=== PATIENT | female | born 1960 | race Caucasian/White ===

== ENCOUNTER 2016-12-15 16:35 | Inpatient (IN) | payer SELFPAY ==
[2016-12-15 18:34] LABS: BASOPHILS # (AUTO) 0.1 X10^3/uL (0.0-0.1); BASOPHILS % (AUTO) 0.6 % (0.2-1.0); EOSINOPHILS # (AUTO) 0.1 x10^3/uL (0.0-0.2); EOSINOPHILS % (AUTO) 0.3 % (0.9-2.9); HEMOGLOBIN 7.8 g/dL (12.0-16.0); LYMPHOCYTES # (AUTO) 2.1 X10^3/uL (1.3-2.9); LYMPHOCYTES % (AUTO) 9.3 % (21.0-51.0); MEAN CORPUSCULAR HEMOGLOBIN 27.7 pg (27.0-34.0); MEAN CORPUSCULAR HGB CONC 32.5 g/dL (33.0-35.0); MEAN CORPUSCULAR VOLUME 85.4 fL (80.0-100.0); MEAN PLATELET VOLUME 6.8 fL (7.4-11.0); MONOCYTES # (AUTO) 2.3 x10^3/uL (0.3-0.8); NEUTROPHILS # (AUTO) 18.1 x10^3/uL (2.2-4.8); NEUTROPHILS % (AUTO) 79.8 % (42.0-75.0); PLATELET COUNT 724 X10^3/uL (150.0-450.0); RED BLOOD COUNT 2.81 X10^6/uL (3.5-5.4); RED CELL DISTRIBUTION WIDTH 14.7 % (11.6-16.5)
--- NOTE | 2016-12-15 18:38 | DR.H&P ---
H&P - History & Physical for Day of: H&P Date: 12/15/16 - Chief Complaint Chief Complaint: lower extremity edema and swelling, sob - Allergies Allergies/Adverse Reactions: Allergies Allergy/AdvReac Type Severity Reaction Status Date / Time No Known Drug Allergies Allergy Verified 12/15/16 17:58 - History of Present Illness History of Present Illness: 56 wf direct admit from dr cota office with new onset lower extremity edema and sob. pt has +4 edema to [place] without hx of cardiac disease or htn. plan to admit for further evaluation. will obtain labs, cxr and administer iv lasix - Past Medical History Past Medical History: Anxiety, Arthritis - Past Surgical History Surgical History: Unknown - Social History Does patient currently use any type of tobacco product: No Have you used tobacco products in the last 12 months: No Type of Tobacco Use: Cigarettes Does any household member use tobacco: Yes Alcohol Use: None Drug Use: None - Review of Systems Constitutional: Weakness Eyes: No Symptoms Reported ENT: No Symptoms Reported Respiratory: Shortness of Breath, Wheezing Cardiovascular: No Symptoms Reported, Edema Gastrointestinal: No Symptoms Reported Genitourinary: No Symptoms Reported Musculoskeletal: Leg Pain Skin: No Symptoms Reported Neurological: No Symptoms Reported - Physical Exam Vital Signs: Temperature 98 F Pulse Rate [Right Brachial] 88 Respiratory Rate 20 Blood Pressure [Right Arm] 85/50 O2 Sat by Pulse Oximetry 98 Oriented: Normal Eyes: Normal Ear: Normal Nose: Normal Throat: Normal Respiratory: RLL Diminished, LLL Diminished Cardiovascular: Normal, Edema Auscultation: Bowel Sounds: Normal Palpation: Normal Tenderness: Normal Skin: Normal Musculoskeletal: Right, Left, Leg, Back:Thoracic, Back:Lumbar Affect: Anxious Speech Pattern: Clear, Appropriate - Assessment/Plan (1) Edema extremities Status: Acute Plan: admit for iv lasix, cbc cmp bnp. cxr on admission, lower extremity doppler. monitor bp, cardiac enzymes (2) SOB (shortness of breath) Status: Acute
[2016-12-15 18:43] LABS: WHITE BLOOD COUNT 22.7 X10^3/uL (3.6-10.0)
[2016-12-15 18:49] LABS: PLATELET MORPHOLOGY COMMENT NORMAL (NORMAL)
[2016-12-15 18:52] LABS: ANISOCYTOSIS SLIGHT; BLOOD UREA NITROGEN 19 mg/dL (7-18); CALCIUM 8.6 mg/dL (8.5-10.1); CARBON DIOXIDE 25.5 mmol/L (21-32); CHLORIDE 104 mmol/L (98-107); CREATININE 1.32 mg/dL (0.55-1.02); GLUCOSE 97 mg/dL (65-99); HYPOCHROMASIA 1+; POIKILOCYTOSIS SLIGHT; SODIUM 138 mmol/L (136-145); TROPONIN I < 0.02 ng/mL (0-1.5); eGFR BLACK RACES 54 (>60); eGFR NON BLACK RACES 44 (>60)
[2016-12-15 18:54] LABS: B-TYPE NATRIURETIC PEPTIDE 77.9 pg/mL (0-79)
[2016-12-15 18:55] LABS: ALANINE AMINOTRANSFERASE 16 Units/L (12-78); ALBUMIN 1.6 g/dL (3.4-5.0); ALKALINE PHOSPHATASE 93 Units/L (46-116); ASPARTATE AMINO TRANSFERASE 12 Units/L (15-37); CKMB % 3.9 % (<4); COR CA(FOR HYPOALB) 10.5 mg/dL (8.5-10.1); CREATINE KINASE 26 Units/L (26-192); CREATINE KINASE MB < 1.0 ng/mL (0-4.0); TOTAL PROTEIN 5.9 g/dL (6.4-8.2)
[2016-12-15 19:14] VITALS: BMI 18.1
--- NOTE | 2016-12-15 20:57 | RAD ---
CHEST RADIOGRAPHS PA AND LATERAL VIEWS CLINICAL HISTORY: 56-year-old female with shortness of breath and edema. COMPARISON: None. FINDINGS: The cardiopericardial silhouette is normal. Opacification with irregularly bordered centr al cystic lucency of the posterior segment of the right upper lobe with prominent right perihilar joanne ng markings and streaky airspace opacities of the right middle and lower lobes with subtle right-gloria ed volume loss. No pneumothorax or large effusion. Imaged osseous structures are intact. Soft tissue s are unremarkable. IMPRESSION: Opacification of the posterior segment of the right upper lobe within irregular cystic lucency with streaky airspace opacity is of the middle and lower lobe. Recommend CTA thorax for evaluation of pos tobstructive consolidation to exclude neoplastic process and pulmonary embolus. Underlying infectiou s process is not excluded. Reported By:
[2016-12-15] MEDS: LASIX IVP SCH (21:55)
--- NOTE | 2016-12-15 22:48 | VAS ---
HISTORY: Edema, shortness of breath. Study: Bilateral lower extremity ultrasound. Comparison: None. TECHNIQUE: Multiple laughlin scale and color flow Doppler images of the deep venous system were obtaine d of the right and left lower extremity. FINDINGS: The deep venous system of the right and left lower extremities were evaluated from the level of the common femoral vein through the popliteal vein. Normal color flow and augmentation can be observed. In addition, normal compression is seen throughout the deep venous system. IMPRESSION: 1. Negative for DVT. Reported By:
[2016-12-16 08:17] LABS: BILIRUBIN,URINE NEGATIVE (NEGATIVE); BLOOD/HEMOGLOBIN,URINE 3+ (NEGATIVE); GLUCOSE, URINE NEGATIVE (NEGATIVE); KETONES,URINE NEGATIVE (NEGATIVE); LEUKOCYTE ESTERASE ,URINE 2+ (NEGATIVE); NITRITES,URINE POSITIVE (NEGATIVE); PROTEIN,URINE NEGATIVE (NEGATIVE); UROBILINOGEN,URINE NORMAL (NORMAL)
[2016-12-16 08:29] LABS: APPEARANCE,URINE CLOUDY (CLEAR); BACTERIA,URINE 2+ /HPF (NEGATIVE); COLOR,URINE YELLOW (YELLOW); SQUAMOUS EPITHELIAL CELL,UR FEW /HPF (NEGATIVE)
[2016-12-16 08:36] LABS: ALANINE AMINOTRANSFERASE 17 Units/L (12-78); ALBUMIN 1.5 g/dL (3.4-5.0); ALKALINE PHOSPHATASE 90 Units/L (46-116); ASPARTATE AMINO TRANSFERASE 16 Units/L (15-37); BLOOD UREA NITROGEN 19 mg/dL (7-18); CALCIUM 8.2 mg/dL (8.5-10.1); CARBON DIOXIDE 29.2 mmol/L (21-32); CHLORIDE 103 mmol/L (98-107); COR CA(FOR HYPOALB) 10.2 mg/dL (8.5-10.1); CREATININE 1.07 mg/dL (0.55-1.02); GLUCOSE 99 mg/dL (65-99); SODIUM 138 mmol/L (136-145); TOTAL PROTEIN 5.8 g/dL (6.4-8.2); eGFR BLACK RACES > 60 (>60); eGFR NON BLACK RACES 57 (>60)
[2016-12-16 08:38] LABS: BASOPHILS # (AUTO) 0.1 X10^3/uL (0.0-0.1); BASOPHILS % (AUTO) 0.4 % (0.2-1.0); EOSINOPHILS # (AUTO) 0.1 x10^3/uL (0.0-0.2); EOSINOPHILS % (AUTO) 0.5 % (0.9-2.9); HEMATOCRIT 24.7 % (36.0-47.0); HEMOGLOBIN 8.2 g/dL (12.0-16.0); MEAN CORPUSCULAR HEMOGLOBIN 28.2 pg (27.0-34.0); MEAN CORPUSCULAR HGB CONC 33.3 g/dL (33.0-35.0); MEAN CORPUSCULAR VOLUME 84.8 fL (80.0-100.0); MEAN PLATELET VOLUME 6.8 fL (7.4-11.0); MONOCYTES # (AUTO) 2.4 x10^3/uL (0.3-0.8); MONOCYTES % (AUTO) 9.8 % (0.0-13.0); NEUTROPHILS # (AUTO) 19.3 x10^3/uL (2.2-4.8); NEUTROPHILS % (AUTO) 77.3 % (42.0-75.0); PLATELET COUNT 781 X10^3/uL (150.0-450.0); RED BLOOD COUNT 2.91 X10^6/uL (3.5-5.4)
[2016-12-16 08:47] LABS: WHITE BLOOD COUNT 24.9 X10^3/uL (3.6-10.0)
[2016-12-16] MEDS ORDERED: TUSSIONEX PENNKINETIC SUSP PO PRN (08:48)
[2016-12-16] MEDS: NS 1000 ML 1,000 ML IV SCH (08:48)
[2016-12-16] MEDS: LASIX IVP SCH ×2 (08:48→20:16)
[2016-12-16] MEDS: LEVAQUIN PREMIX IV 750 MG 750 MG/150 ML BAG IV SCH (08:58)
[2016-12-16] MEDS: ROBITUSSIN DM PO SCH ×4 (08:58→20:16)
[2016-12-16] MEDS ORDERED: NS 100 ML IV 100 ML IV ONE (08:59)
[2016-12-16] MEDS ORDERED: NS 1/2 1000 ML IV 1,000 ML IV SCH (09:00)
[2016-12-16 09:03] LABS: PLATELET MORPHOLOGY COMMENT NORMAL (NORMAL)
--- NOTE | 2016-12-16 10:08 | CT ---
HISTORY: Productive cough, shortness of breath, abnormal x-ray Study: CTA chest Comparison: Chest x-ray done on the same date. No prior chest CTs available for comparison. Technique: Multiple axial images of the chest were obtained from the thoracic inlet to the upper abd omen during the administration of IV contrast. In addition to standard multi planar reconstructions, MIP reconstructions were performed and reviewed in axial, coronal and sagittal planes. Dose reducti on techniques utilized automatic exposure control. Findings: There is central mediastinal adenopathy. Anterior carinal node is present measuring 1.08 x 2.17 cent imeters. There is no pericardial effusion observed. The thoracic aorta is normal in its contour wi thout evidence for aneurysmal dilatation. The central pulmonary arterial system does not demonstrat e central filling defects to suggest pulmonary emboli. Evaluation of the lung parenchyma reveals cylindrical bronchiectasis bilaterally. Bronchial wall 's are particularly thickened involving the bronchi serving the apical posterior segment of the right u pper lobe and the superior segment of the right lower lobe regions. Dense infiltrates are present in these regions with a small right pleural effusion. No mass is seen. There is air-fluid level presen t within a cavity present in the right lower lobe. This may represent a lung abscess. There is patch y bronchopneumonia present in the left lower lobe is well.. No pulmonary nodule or mass can be iden tified. The bony thorax is unremarkable in its appearance. The liver and adrenal glands are normal . Small mesenteric and retroperitoneal lymph nodes are present.. IMPRESSION: Central mediastinal and upper abdominal adenopathy. Dense infiltrates present involving the posterior aspect of the apical posterior segment of the righ t upper lobe as well as the superior segment of the right lower lobe. Air-fluid levels are present w ithin the cavity in the right lower lobe region. This may represent a lung abscess. Pleural fluid is present. No mass seen. Changes of cylindrical bronchiectasis. Patchy mild bronchopneumonia is present in the left lower lob e region. No evidence of pulmonary embolus or thoracic aortic aneurysm. Reported By:
[2016-12-16] MEDS ORDERED: SALINE 3% 15 ML NEB TX ONE (10:11)
[2016-12-16] MEDS ORDERED: SALINE 3% 15 ML NEB TX NEB ONE (10:14)
[2016-12-16] MEDS: DUONEB 0.5 MG/3 MG NEB SCH ×3 (12:10→21:02)
--- NOTE | 2016-12-16 13:41 | PCM.PROG ---
Progress Note - Progress Note for Day of Date: 12/16/16 - Subjective Subjective: 56 wf admitted one day ago with new onset edema and sob. pt did received iv lasix with improved lower extremity edema this am pt had chest xray revealing possible pneumonia, CTA of chest ordered for this am. Pt wbc 22, 000 on admission. blood and sputum cultures ordered. resp therapy, iv levaquin and increase oral hydration. - Past Medical Family Social History Past Med/Fam/Surg Hx: No changes since H&P Allergies: Allergies No Known Drug Allergies Allergy (Verified 12/15/16 17:58) - Review of Systems ROS: No change since H&P - Vital Signs and I&O's Vital Signs: Temperature 98.8 F Pulse Rate [Right Brachial] 90 Pulse Rate 90 Respiratory Rate 20 Blood Pressure [Right Arm] 91/53 O2 Sat by Pulse Oximetry 91 Intake and Output: Intake & Output 12/14/16 12/15/16 12/16/16 12/17/16 11:59 11:59 11:59 11:59 Intake Total 0 Output Total 1000 Balance -1000 - Physical Exam Oriented: Normal Eyes: Normal Ear: Normal Nose: Normal Throat: Normal Respiratory: Diminished, Wheezes, Rhonchi Cardiovascular: Normal, Edema Auscultation: Bowel Sounds: Normal Tenderness: Normal Skin: Normal Musculoskeletal: Right, Left, Leg, Back:Thoracic, Back:Lumbar Affect: Anxious Speech Pattern: Clear, Appropriate - Laboratory and Diagnostics Result Diagrams: 12/16/16 08:00 12/16/16 08:00 Labs: 12/16/16 10:31 Sputum - Expectorated Sputum - Final Laboratory WBC 24.9 X10^3/uL (3.6-10.0) H* 12/16/16 08:00 RBC 2.91 X10^6/uL (3.5-5.4) L 12/16/16 08:00 Hgb 8.2 g/dL (12.0-16.0) L 12/16/16 08:00 Hct 24.7 % (36.0-47.0) L 12/16/16 08:00 MCV 84.8 fL (80.0-100.0) 12/16/16 08:00 MCH 28.2 pg (27.0-34.0) 12/16/16 08:00 MCHC 33.3 g/dL (33.0-35.0) 12/16/16 08:00 RDW 15.0 % (11.6-16.5) 12/16/16 08:00 Plt Count 781 X10^3/uL (150.0-450.0) H 12/16/16 08:00 Plt Count Comment Increased (ADEQUATE) A 12/16/16 08:00 MPV 6.8 fL (7.4-11.0) L 12/16/16 08:00 Neut % 77.3 % (42.0-75.0) H 12/16/16 08:00 Lymph % 12.0 % (21.0-51.0) L 12/16/16 08:00 [place] % 9.8 % (0.0-13.0) 12/16/16 08:00 Eos % 0.5 % (0.9-2.9) L 12/16/16 08:00 Baso % 0.4 % (0.2-1.0) 12/16/16 08:00 Neut # 19.3 x10^3/uL (2.2-4.8) H 12/16/16 08:00 Lymph # 3.0 X10^3/uL (1.3-2.9) H 12/16/16 08:00 [place] # 2.4 x10^3/uL (0.3-0.8) H 12/16/16 08:00 Eos # 0.1 x10^3/uL (0.0-0.2) 12/16/16 08:00 Baso # 0.1 X10^3/uL (0.0-0.1) 12/16/16 08:00 Absolute Nucleated RBC 0.0 /100WBC 12/16/16 08:00 Total Counted 100 12/16/16 08:00 Neutrophils % (Manual) 79 % (39-76) H 12/16/16 08:00 Lymphocytes % (Manual) 16 % (13-43) 12/16/16 08:00 Monocytes % (Manual) 5 % (4-9) 12/16/16 08:00 Plt Morphology Comment Normal (NORMAL) 12/16/16 08:00 RBC Morphology Normal (NORMAL) 12/16/16 08:00 Hypochromasia 1+ A 12/15/16 18:21 Poikilocytosis Slight A 12/15/16 18:21 Anisocytosis Slight A 12/15/16 18:21 Sodium 138 mmol/L (136-145) 12/16/16 08:00 Corrected Sodium TNP 12/16/16 08:00 Potassium 3.7 mmol/L (3.5-5.1) 12/16/16 08:00 Chloride 103 mmol/L (98-107) 12/16/16 08:00 Carbon Dioxide 29.2 mmol/L (21-32) 12/16/16 08:00 BUN 19 mg/dL (7-18) H 12/16/16 08:00 Creatinine 1.07 mg/dL (0.55-1.02) H 12/16/16 08:00 Est GFR (MDRD) Af Amer > 60 (>60) 12/16/16 08:00 Est GFR (MDRD) Non-Af 57 (>60) L 12/16/16 08:00 Glucose 99 mg/dL (65-99) 12/16/16 08:00 Lactic Acid 0.7 mmol/L (0.4-2.0) 12/16/16 08:30 Calcium 8.2 mg/dL (8.5-10.1) L 12/16/16 08:00 Corrected Calcium 10.2 mg/dL (8.5-10.1) H 12/16/16 08:00 Total Bilirubin 0.40 mg/dL (0.2-1.0) 12/16/16 08:00 AST 16 Units/L (15-37) 12/16/16 08:00 ALT 17 Units/L (12-78) 12/16/16 08:00 Alkaline Phosphatase 90 Units/L (46-116) 12/16/16 08:00 Creatine Kinase 26 Units/L (26-192) 12/15/16 18:21 CK-MB (CK-2) < 1.0 ng/mL (0-4.0) 12/15/16 18:21 CK/CKMB % Calc 3.9 % (<4) 12/15/16 18:21 Troponin I < 0.02 ng/mL (0-1.5) 12/15/16 18:21 B-Natriuretic Peptide 77.9 pg/mL (0-79) 12/15/16 18:21 Total Protein 5.8 g/dL (6.4-8.2) L 12/16/16 08:00 Albumin 1.5 g/dL (3.4-5.0) L 12/16/16 08:00 Globulin 4.3 g/dL (2.5-4.5) 12/16/16 08:00 Albumin/Globulin Ratio 0.3 Ratio (1.1-2.1) L 12/16/16 08:00 Specimen Type Clean catch urine 12/16/16 07:57 Urine Color Yellow (YELLOW) 12/16/16 07:57 Urine Appearance Cloudy (CLEAR) 12/16/16 07:57 Urine pH 6.0 (5.0 - 8.0) 12/16/16 07:57 Ur Specific [place] 1.005 (1.000-1.030) 12/16/16 07:57 Urine Protein Negative (NEGATIVE) 12/16/16 07:57 Urine Glucose (UA) Negative (NEGATIVE) 12/16/16 07:57 Urine Ketones Negative (NEGATIVE) 12/16/16 07:57 Urine Occult Blood 3+ (NEGATIVE) 12/16/16 07:57 Urine Nitrite Positive (NEGATIVE) 12/16/16 07:57 Urine Bilirubin Negative (NEGATIVE) 12/16/16 07:57 Urine Urobilinogen Normal (NORMAL) 12/16/16 07:57 Ur Leukocyte Esterase 2+ (NEGATIVE) 12/16/16 07:57 Urine RBC 5-7 /HPF (NEGATIVE) 12/16/16 07:57 Urine WBC 8-10 /HPF (NEGATIVE) 12/16/16 07:57 Ur Squamous Epith Cells Few /HPF (NEGATIVE) 12/16/16 07:57 Urine Bacteria 2+ /HPF (NEGATIVE) 12/16/16 07:57 Ur Culture Indicated? Yes/culture set up 12/16/16 07:57 - Plan (1) Pneumonia Status: Acute Qualifiers: Pneumonia type: P Aspiration pneumonia type: A Laterality: L Lung location: L Plan: pneumonia protocol with levaquin iv. resp therapy, blood and sputum spec. repeat am labs (2) Edema extremities Status: Acute Plan: lasix. resp consult, cta chest (3) SOB (shortness of breath) Status: Acute
[2016-12-16] MEDS ORDERED: TYLENOL 325 MG TAB PO PRN (19:46)
[2016-12-17] MEDS: DUONEB 0.5 MG/3 MG NEB SCH ×6 (01:30→21:35)
[2016-12-17] MEDS: NS 1000 ML 1,000 ML IV SCH ×3 (02:20→13:22)
[2016-12-17 06:20] LABS: ALANINE AMINOTRANSFERASE 15 Units/L (12-78); ALBUMIN 1.3 g/dL (3.4-5.0); ALKALINE PHOSPHATASE 84 Units/L (46-116); ASPARTATE AMINO TRANSFERASE 17 Units/L (15-37); BLOOD UREA NITROGEN 13 mg/dL (7-18); CALCIUM 7.9 mg/dL (8.5-10.1); CARBON DIOXIDE 30.7 mmol/L (21-32); CHLORIDE 102 mmol/L (98-107); COR CA(FOR HYPOALB) 10.1 mg/dL (8.5-10.1); CREATININE 1.05 mg/dL (0.55-1.02); GLUCOSE 106 mg/dL (65-99); SODIUM 140 mmol/L (136-145); TOTAL PROTEIN 5.5 g/dL (6.4-8.2); eGFR BLACK RACES > 60 (>60); eGFR NON BLACK RACES 58 (>60)
[2016-12-17 06:22] LABS: BASOPHILS % (AUTO) 0.2 % (0.2-1.0); EOSINOPHILS % (AUTO) 0.1 % (0.9-2.9); HEMATOCRIT 23.4 % (36.0-47.0); HEMOGLOBIN 7.9 g/dL (12.0-16.0); LYMPHOCYTES % (AUTO) 9.3 % (21.0-51.0); MEAN CORPUSCULAR HEMOGLOBIN 28.1 pg (27.0-34.0); MEAN CORPUSCULAR HGB CONC 33.7 g/dL (33.0-35.0); MEAN CORPUSCULAR VOLUME 83.4 fL (80.0-100.0); MEAN PLATELET VOLUME 6.8 fL (7.4-11.0); MONOCYTES # (AUTO) 2.1 x10^3/uL (0.3-0.8); MONOCYTES % (AUTO) 9.9 % (0.0-13.0); NEUTROPHILS # (AUTO) 17.3 x10^3/uL (2.2-4.8); NEUTROPHILS % (AUTO) 80.5 % (42.0-75.0); PLATELET COUNT 704 X10^3/uL (150.0-450.0); RED CELL DISTRIBUTION WIDTH 15.1 % (11.6-16.5)
[2016-12-17 06:54] LABS: WHITE BLOOD COUNT 21.5 X10^3/uL (3.6-10.0)
[2016-12-17 06:55] LABS: ANISOCYTOSIS SLIGHT; HYPOCHROMASIA 1+; PLATELET MORPHOLOGY COMMENT NORMAL (NORMAL)
[2016-12-17] MEDS ORDERED: POTASSIUM CHLORIDE LIQ 20 MEQ UDC PO PRN (07:25)
[2016-12-17] MEDS ORDERED: K-RIDER 10 MEQ/NS 100 ML 10 MEQ/100 ML BAG IV PRN (07:25)
[2016-12-17] MEDS ORDERED: K-LYTE EFFERVESCENT PO PRN (07:25)
[2016-12-17] MEDS ORDERED: K-DUR TAB 20 MEQ PO PRN (07:25)
[2016-12-17] MEDS: LEVAQUIN PREMIX IV 750 MG 750 MG/150 ML BAG IV SCH (08:00)
[2016-12-17] MEDS: ROBITUSSIN DM PO SCH ×4 (08:00→21:11)
[2016-12-17] MEDS: LASIX IVP SCH ×2 (08:00→21:11)
[2016-12-18] MEDS: NS 1000 ML 1,000 ML IV SCH ×2 (00:27→13:03)
[2016-12-18] MEDS: DUONEB 0.5 MG/3 MG NEB SCH ×5 (01:02→16:18)
[2016-12-18 05:34] LABS: BASOPHILS # (AUTO) 0.1 X10^3/uL (0.0-0.1); BASOPHILS % (AUTO) 0.5 % (0.2-1.0); EOSINOPHILS # (AUTO) 0.1 x10^3/uL (0.0-0.2); EOSINOPHILS % (AUTO) 0.5 % (0.9-2.9); HEMATOCRIT 21.8 % (36.0-47.0); HEMOGLOBIN 7.5 g/dL (12.0-16.0); LYMPHOCYTES # (AUTO) 2.2 X10^3/uL (1.3-2.9); MEAN CORPUSCULAR HEMOGLOBIN 28.5 pg (27.0-34.0); MEAN CORPUSCULAR HGB CONC 34.2 g/dL (33.0-35.0); MEAN CORPUSCULAR VOLUME 83.2 fL (80.0-100.0); MEAN PLATELET VOLUME 6.7 fL (7.4-11.0); MONOCYTES # (AUTO) 1.6 x10^3/uL (0.3-0.8); MONOCYTES % (AUTO) 10.7 % (0.0-13.0); NEUTROPHILS # (AUTO) 10.9 x10^3/uL (2.2-4.8); NEUTROPHILS % (AUTO) 73.3 % (42.0-75.0); PLATELET COUNT 747 X10^3/uL (150.0-450.0); RED BLOOD COUNT 2.62 X10^6/uL (3.5-5.4); RED CELL DISTRIBUTION WIDTH 14.8 % (11.6-16.5); WHITE BLOOD COUNT 14.8 X10^3/uL (3.6-10.0)
[2016-12-18 05:38] LABS: ALANINE AMINOTRANSFERASE 24 Units/L (12-78); ALBUMIN 1.3 g/dL (3.4-5.0); ALKALINE PHOSPHATASE 83 Units/L (46-116); ASPARTATE AMINO TRANSFERASE 36 Units/L (15-37); BLOOD UREA NITROGEN 12 mg/dL (7-18); CALCIUM 7.9 mg/dL (8.5-10.1); CARBON DIOXIDE 30.2 mmol/L (21-32); CHLORIDE 104 mmol/L (98-107); COR CA(FOR HYPOALB) 10.1 mg/dL (8.5-10.1); CREATININE 0.88 mg/dL (0.55-1.02); GLUCOSE 87 mg/dL (65-99); SODIUM 142 mmol/L (136-145); TOTAL PROTEIN 5.4 g/dL (6.4-8.2); eGFR BLACK RACES > 60 (>60); eGFR NON BLACK RACES > 60 (>60)
[2016-12-18 05:54] LABS: HYPOCHROMASIA 1+; PLATELET MORPHOLOGY COMMENT NORMAL (NORMAL)
[2016-12-18] MEDS: LEVAQUIN PREMIX IV 750 MG 750 MG/150 ML BAG IV SCH (08:00)
[2016-12-18] MEDS: ROBITUSSIN DM PO SCH ×3 (08:00→16:12)
[2016-12-18] MEDS: LASIX IVP SCH (08:00)
[2016-12-18] MEDS ORDERED: ATIVAN TAB 0.5 MG PO PRN (15:11)
[2016-12-18] MEDS ORDERED: PriLOSEC PO SCH (16:00)
[2016-12-18 16:03] LABS: ABG ALLEN TEST POS; ABG BASE EXCESS 9.2 mmol/L (-2.0-2.0); ABG HCO3 32.6 mmol/L (22-26)
[2016-12-18 16:09] VITALS: BP 101/54
[2016-12-19] MEDS ORDERED: TAB-A-VITE PO SCH (09:00)
== END 2016-12-18 17:35 | disposition home or self-care (01) | DRG 178 ==
LOC: MED/SURG 16:35
PROVIDERS: ADMIT Internal Medicine; ATTEND Internal Medicine
DX: J85.1 Abscess of lung with pneumonia (principal); J44.1 Chronic obstructive pulmonary disease with (acute) exacerbation; N39.0 Urinary tract infection, site not specified; R06.02 Shortness of breath; R60.0 Localized edema; J20.8 Acute bronchitis due to other specified organisms; F41.8 Other specified anxiety disorders; M13.89 Other specified arthritis, multiple sites; B96.29 Other Escherichia coli [E. coli] as the cause of diseases classified elsewhere
CPT/HCPCS: 36415; 36600; 71020; 71275; 80053; 81001; 82550; 82553; 82803; 83605; 83735; 83880; 84132; 84484; 85025; 87040; 87070; 87086; 87088; 87186; 87205; 93005; 93010; 93970; 94640; 94760; 99231; A4222; J1940; J1956; J7620

== ENCOUNTER 2021-09-30 17:46 | Inpatient (IN) ==
[2021-09-30] MEDS ORDERED: ZOFRAN INJ 4 MG VIAL IVP PRN (18:10)
--- NOTE | 2021-09-30 18:16 | DR.H&P ---
H&P - History & Physical for Day of: H&P Date: 09/30/21 - Chief Complaint Chief Complaint: INTRACTABLE LOWER BACK PAIN, LEG WEAKNESS - History of Present Illness History of Present Illness: PT IS 60 WF DIRECT ADMIT FROM DR KUMAR OFFICE WITH MRI REPORTS REVEALING DISCITIS/OSTEOMYELITIS. PT HAS HAD INTRACTABLE BACK PAIN SINCE A FALL A FEW MONTHS AGO. PT REPORTS INCREASED LOWER LEG WEAKNESS. PT HAS PMH OF COLON CA IN 1993 AND REOCCURRENCE IN 1996. PT HAS COPD AND GERD. PT ADMITTED FOR TREATMENT AND EVALUATION OF ACUTE ILLNESS. - Past Medical History Past Medical History: Anxiety, Arthritis, GERD Additional Medical History: COLONOSCOPY - Past Surgical History Surgical History: Bowel Resection, Hysterectomy Additional Surgical History: COLECTOMY, COLOSTOMY PLACEMENT - Family History Family Medical History: Hypertension - Social History Does patient currently use any type of tobacco product: Yes Have you used tobacco products in the last 12 months: Yes Type of Tobacco Use: Cigarettes Does any household member use tobacco: No Alcohol Use: None Drug Use: None Prescription drug monitoring program results: PDMP reviewed and no concerns identified - Medications Home Medications: No Known Drug Allergies Allergy (Verified 04/25/21 12:34) - Review of Systems Constitutional: Chills, Weakness, Malaise Eyes: No Symptoms Reported ENT: No Symptoms Reported Respiratory: SOB with Excertion Cardiovascular: Edema Gastrointestinal: Nausea Genitourinary: No Symptoms Reported Musculoskeletal: Back Pain Skin: No Symptoms Reported Neurological: Weakness - Physical Exam Vital Signs: Blood Pressure [Left Arm] 118/59 Blood Pressure [Right Arm] 113/60 Blood Pressure 91/46 Oriented: Normal Eyes: Normal Ear: Normal Nose: Normal Throat: Normal Respiratory: Wheezes Throughout Cardiovascular: Normal, Edema Auscultation: Bowel Sounds: Normal Palpation: Normal Tenderness: Normal Skin: Decreased Turgur Musculoskeletal: Back:Thoracic, Back:Lumbar Psychiatric: Normal Speech Pattern: Clear, Appropriate - Assessment/Plan (1) Discitis of lumbar region Status: Acute Plan: ADMIT, IV ATBX. BLOOD CULTURES ON ADMISSION. CXR, PAIN CONTROL. CONFIRM HOME MEDICATION. CRP, SED RATE (2) History of colon cancer Status: Acute (3) Anemia Status: Acute - Allergies Allergies/Adverse Reactions: Allergies Allergy/AdvReac Type Severity Reaction Status Date / Time No Known Drug Allergies Allergy Verified 04/25/21 12:34
[2021-09-30] MEDS ORDERED: PHARMACY CONSULT - VANCOMYCIN XX SCH (19:00)
--- NOTE | 2021-09-30 19:32 | RAD ---
HISTORYCOPD, DOESTUDYCHEST, 1 VIEWCOMPARISONNone.TECHNIQUEA single frontal view of the chest was obtained.FINDINGSThe heart is normal in size. There are mildly increased interstitial markings seen in the right perihilar region extending to the midlung zone.. There is no effusion. There is no pneumothorax. The osseous structures are intact.IMPRESSIONEarly developing right midlung zone interstitial infiltrate extending from the right perihilar region.Electronically signed by: Gabi Camara (Sep 30, 2021 19:31:00)
[2021-09-30 19:36] LABS: BASOPHILS # (AUTO) 0.1 X10^3/uL (0.0-0.1); BASOPHILS % (AUTO) 1.2 % (0.2-1.0); EOSINOPHILS # (AUTO) 0.3 x10^3/uL (0.0-0.2); EOSINOPHILS % (AUTO) 3.2 % (0.9-2.9); HEMATOCRIT 27.3 % (36.0-47.0); HEMOGLOBIN 9.7 g/dL (12.0-16.0); LYMPHOCYTES # (AUTO) 2.5 X10^3/uL (1.3-2.9); LYMPHOCYTES % (AUTO) 28.2 % (21.0-51.0); MEAN CORPUSCULAR HGB CONC 35.4 g/dL (33.0-35.0); MEAN CORPUSCULAR VOLUME 90.6 fL (80.0-100.0); MEAN PLATELET VOLUME 6.4 fL (7.4-11.0); MONOCYTES % (AUTO) 10.8 % (0.0-13.0); NEUTROPHILS % (AUTO) 56.6 % (42.0-75.0); RED BLOOD COUNT 3.02 X10^6/uL (3.5-5.4); WHITE BLOOD COUNT 8.8 X10^3/uL (3.6-10.0)
[2021-09-30 19:46] LABS: ERYTHROCYTE SEDIMENTATION RATE 15 MM/HOUR (0-20)
[2021-09-30 19:49] LABS: ALBUMIN 2.7 g/dL (3.4-5.0); CALCIUM 8.6 mg/dL (8.5-10.1); COR CA(FOR HYPOALB) 9.6 mg/dL (8.5-10.1); CREATININE 1.65 mg/dL (0.55-1.02)
[2021-09-30] MEDS ORDERED: VANCOMYCIN IV *PREMIX 750 mg/150 ML BAG 750 MG/150 ML PIGGYBACK IV SCH (21:00)
[2021-09-30] MEDS: NS 1,000 ML IV 1,000 ML IV SCH (21:15)
[2021-09-30] MEDS: MORPHINE SULFATE INJ 2 MG INJ IVP PRN (21:16)
[2021-09-30 21:37] VITALS: BMI 19.8
[2021-10-01 04:54] LABS: BASOPHILS % (AUTO) 0.5 % (0.2-1.0); EOSINOPHILS # (AUTO) 0.3 x10^3/uL (0.0-0.2); EOSINOPHILS % (AUTO) 2.7 % (0.9-2.9); HEMATOCRIT 26.9 % (36.0-47.0); HEMOGLOBIN 9.4 g/dL (12.0-16.0); LYMPHOCYTES # (AUTO) 1.6 X10^3/uL (1.3-2.9); LYMPHOCYTES % (AUTO) 16.8 % (21.0-51.0); MEAN CORPUSCULAR HEMOGLOBIN 31.5 pg (27.0-34.0); MEAN CORPUSCULAR HGB CONC 35.1 g/dL (33.0-35.0); MEAN CORPUSCULAR VOLUME 89.9 fL (80.0-100.0); MEAN PLATELET VOLUME 6.5 fL (7.4-11.0); MONOCYTES % (AUTO) 10.5 % (0.0-13.0); NEUTROPHILS # (AUTO) 6.6 x10^3/uL (2.2-4.8); NEUTROPHILS % (AUTO) 69.5 % (42.0-75.0); RED BLOOD COUNT 2.99 X10^6/uL (3.5-5.4); WHITE BLOOD COUNT 9.5 X10^3/uL (3.6-10.0)
[2021-10-01 05:05] LABS: ALANINE AMINOTRANSFERASE 11 Units/L (12-78); ALBUMIN 2.4 g/dL (3.4-5.0); ALKALINE PHOSPHATASE 81 Units/L (46-116); ASPARTATE AMINO TRANSFERASE 9 Units/L (15-37); BLOOD UREA NITROGEN 29 mg/dL (7-18); CALCIUM 8.1 mg/dL (8.5-10.1); CARBON DIOXIDE 18.6 mmol/L (21-32); CHLORIDE 111 mmol/L (98-107); COR CA(FOR HYPOALB) 9.4 mg/dL (8.5-10.1); CREATININE 1.25 mg/dL (0.55-1.02); SODIUM 139 mmol/L (136-145); TOTAL PROTEIN 5.5 g/dL (6.4-8.2); eGFR NON BLACK RACES 47 (>60)
[2021-10-01] MEDS ORDERED: MICRO K EXTEN CAP 10 MEQ PO PRN (06:06)
[2021-10-01] MEDS ORDERED: POTASSIUM CHLORIDE LIQ 20 MEQ UDC PO PRN (06:06)
[2021-10-01] MEDS ORDERED: POTASSIUM CHL 60 MEQ/NS 0.45% 500 ML IV PRN (06:06)
[2021-10-01] MEDS ORDERED: KLOR-CON PO PRN (06:06)
[2021-10-01] MEDS ORDERED: K-RIDER 10 MEQ/NS 100 ML 10 MEQ/100 ML BAG IV PRN (06:06)
[2021-10-01] MEDS ORDERED: POTASSIUM CHL 40 MEQ/NS 0.45% 500 ML IV PRN (06:06)
[2021-10-01] MEDS: MORPHINE SULFATE INJ 2 MG INJ IVP PRN ×5 (08:05→21:25)
[2021-10-01] MEDS: NS 1,000 ML IV 1,000 ML IV SCH ×2 (08:48→14:25)
[2021-10-01] MEDS: K-DUR TAB 20 MEQ PO PRN (08:49)
[2021-10-01] MEDS: VANCOMYCIN IV *PREMIX 750 mg/150 ML BAG 750 MG/150 ML PIGGYBACK IV SCH ×2 (08:49→21:43)
[2021-10-01] MEDS: PROTONIX INJ 40 MG VIAL IVP SCH (09:05)
[2021-10-01] MEDS: LOVENOX INJ 40 MG SYR SC SCH (12:58)
--- NOTE | 2021-10-01 19:14 | CT ---
HISTORYLBP, INFLAMMATION, R/O OSTEOMYLITISSTUDYLUMBAR SPINE W/O CONCOMPARISONApril 2021 x-ray lumbar spine.TECHNIQUECT Scan of the lumbar spine was obtained without contrast. Images reformatted in the coronal and sagittal plane.FINDINGSThere is straightening of the normal lordotic curvature of the lumbar spine with fusion now seen of L3 and L4. Anterior wedge deformities of L3 and L4 is seen with marked erosion of the inferior endplate of L3 and superior endplate of L4 and coalescing of these 2 vertebral bodies at the previous contiguous endplates. This is consistent with the sequelae of discitis and osteomyelitis. This is subacute to chronic at this time. Small bony fragmentation is seen surrounding the L3-4 former disc space. The L3 vertebral body is subluxed laterally into the left of the L4 vertebral body. There is no evidence of acute fracture or spondylolisthesis. No gross epidural compressive mass identified. No paraspinal mass identified.Evaluation of individual levels demonstrates at L3-4 there is almost complete fusion and a mild broad-based disc herniation and osteophyte complex with mild ligamentous hypertrophy resulting in moderate central canal stenosis, moderate right neural foraminal narrowing and mild left neuroforaminal narrowing.At L4-5 there are erosive degenerative endplate changes with vacuum phenomenon at this level and a minimal broad-based disc bulge resulting in mild left neural foraminal narrowing and mild central canal stenosis.There are small bilateral pleural effusions and compressive atelectasis of the posterior lung bases with linear subsegmental atelectasis of the posterior lung bases, right greater than left. There is a calcified granuloma of the spleen. There is a right renal low-attenuation lesion which most likely represents a cyst measuring 2 cm. There are 2 nonobstructing right midpole renal calculi. One measures 4 mm and the 2nd measures 2 mm. There is also a large probable exophytic left lower pole renal cortical cyst which is not seen in its entirety but measures at least 7 cm in diameter.IMPRESSION1. The sequelae of subacute to chronic discitis/osteomyelitis of L3-4 is seen with complete fusion at L3-4, loss of the disc space height and chronic erosive endplate changes involving the contiguous endplates of L3-4. Associated mild broad-based disc herniation and osteophyte complex at L3-4 with mild ligamentous hypertrophy result in moderate central canal stenosis, moderate right neural foraminal narrowing and mild left neuroforaminal narrowing.2. L4-5 minimal broad-based disc bulge resulting in mild left foraminal narrowing and mild central canal stenosis.3. Small bilateral pleural effusions and compressive atelectasis of the posterior lung bases.4. At least 2 right nonobstructing renal calculi with no hydronephrosis or obstructive uropathy changes seen.5. Large exophytic left lower pole cyst which could measure greater than 7 cm in diameter.Electronically signed by: Gabi Camara (Oct 01, 2021 19:12:14)
[2021-10-02] MEDS: MORPHINE SULFATE INJ 2 MG INJ IVP PRN ×5 (02:25→21:46)
[2021-10-02] MEDS: NS 1,000 ML IV 1,000 ML IV SCH ×2 (03:41→16:44)
[2021-10-02 05:55] LABS: BASOPHILS # (AUTO) 0.1 X10^3/uL (0.0-0.1); EOSINOPHILS # (AUTO) 0.2 x10^3/uL (0.0-0.2); EOSINOPHILS % (AUTO) 3.4 % (0.9-2.9); HEMOGLOBIN 8.9 g/dL (12.0-16.0); LYMPHOCYTES # (AUTO) 1.9 X10^3/uL (1.3-2.9); LYMPHOCYTES % (AUTO) 25.9 % (21.0-51.0); MEAN CORPUSCULAR HEMOGLOBIN 31.2 pg (27.0-34.0); MEAN CORPUSCULAR HGB CONC 34.2 g/dL (33.0-35.0); MEAN CORPUSCULAR VOLUME 91.1 fL (80.0-100.0); MEAN PLATELET VOLUME 6.9 fL (7.4-11.0); MONOCYTES # (AUTO) 0.8 x10^3/uL (0.3-0.8); MONOCYTES % (AUTO) 10.5 % (0.0-13.0); NEUTROPHILS # (AUTO) 4.4 x10^3/uL (2.2-4.8); NEUTROPHILS % (AUTO) 59.2 % (42.0-75.0); RED BLOOD COUNT 2.85 X10^6/uL (3.5-5.4); RED CELL DISTRIBUTION WIDTH 16.2 % (11.6-16.5); WHITE BLOOD COUNT 7.4 X10^3/uL (3.6-10.0)
[2021-10-02 06:08] LABS: ALANINE AMINOTRANSFERASE < 6 Units/L (12-78); ALKALINE PHOSPHATASE 68 Units/L (46-116); ASPARTATE AMINO TRANSFERASE 10 Units/L (15-37); BLOOD UREA NITROGEN 17 mg/dL (7-18); CALCIUM 7.7 mg/dL (8.5-10.1); COR CA(FOR HYPOALB) 9.3 mg/dL (8.5-10.1); CREATININE 0.75 mg/dL (0.55-1.02); SODIUM 142 mmol/L (136-145); eGFR NON BLACK RACES > 60 (>60)
[2021-10-02 06:13] LABS: CARBON DIOXIDE 14.4 mmol/L (21-32); CHLORIDE 116 mmol/L (98-107)
[2021-10-02] MEDS ORDERED: PHARMACY COMMENT IV ONE (08:30)
[2021-10-02] MEDS: LOVENOX INJ 40 MG SYR SC SCH (08:34)
[2021-10-02] MEDS: PROTONIX INJ 40 MG VIAL IVP SCH (08:35)
[2021-10-02 09:22] LABS: CREATININE 0.66 mg/dL (0.55-1.02); VANCOMYCIN,TROUGH 14.7 ug/mL (15-20)
[2021-10-02] MEDS: VANCOMYCIN IV *PREMIX 750 mg/150 ML BAG 750 MG/150 ML PIGGYBACK IV SCH ×2 (09:37→20:38)
[2021-10-02] MEDS: K-DUR TAB 20 MEQ PO PRN (10:58)
[2021-10-02 15:34] LABS: BILIRUBIN,URINE NEGATIVE (NEGATIVE); BLOOD/HEMOGLOBIN,URINE 3+ (NEGATIVE); GLUCOSE, URINE NEGATIVE (NEGATIVE); KETONES,URINE NEGATIVE (NEGATIVE); LEUKOCYTE ESTERASE ,URINE 1+ (NEGATIVE); NITRITES,URINE NEGATIVE (NEGATIVE); PH,URINE 6.5 (5.0 - 8.0); PROTEIN,URINE 1+ (NEGATIVE); UROBILINOGEN,URINE NORMAL (NORMAL)
[2021-10-02 15:48] LABS: APPEARANCE,URINE CLEAR (CLEAR); COLOR,URINE STRAW (YELLOW)
[2021-10-02 15:49] LABS: BACTERIA,URINE TRACE /HPF (NEGATIVE); SQUAMOUS EPITHELIAL CELL,UR RARE /HPF (NEGATIVE); YEAST,URINE RARE /HPF (NEGATIVE)
[2021-10-03] MEDS: MORPHINE SULFATE INJ 2 MG INJ IVP PRN ×5 (03:01→21:24)
[2021-10-03] MEDS: NS 1,000 ML IV 1,000 ML IV SCH ×4 (04:18→21:31)
[2021-10-03 05:17] LABS: BASOPHILS # (AUTO) 0.1 X10^3/uL (0.0-0.1); BASOPHILS % (AUTO) 0.8 % (0.2-1.0); EOSINOPHILS # (AUTO) 0.3 x10^3/uL (0.0-0.2); EOSINOPHILS % (AUTO) 4.3 % (0.9-2.9); HEMATOCRIT 27.9 % (36.0-47.0); HEMOGLOBIN 9.6 g/dL (12.0-16.0); LYMPHOCYTES # (AUTO) 1.8 X10^3/uL (1.3-2.9); MEAN CORPUSCULAR HEMOGLOBIN 31.2 pg (27.0-34.0); MEAN CORPUSCULAR HGB CONC 34.4 g/dL (33.0-35.0); MEAN CORPUSCULAR VOLUME 90.9 fL (80.0-100.0); MEAN PLATELET VOLUME 6.8 fL (7.4-11.0); MONOCYTES # (AUTO) 0.8 x10^3/uL (0.3-0.8); MONOCYTES % (AUTO) 9.4 % (0.0-13.0); NEUTROPHILS # (AUTO) 5.2 x10^3/uL (2.2-4.8); NEUTROPHILS % (AUTO) 63.5 % (42.0-75.0); RED BLOOD COUNT 3.07 X10^6/uL (3.5-5.4); RED CELL DISTRIBUTION WIDTH 16.2 % (11.6-16.5); WHITE BLOOD COUNT 8.2 X10^3/uL (3.6-10.0)
[2021-10-03 05:25] LABS: ALANINE AMINOTRANSFERASE 6 Units/L (12-78); ALBUMIN 2.1 g/dL (3.4-5.0); ALKALINE PHOSPHATASE 68 Units/L (46-116); ASPARTATE AMINO TRANSFERASE 8 Units/L (15-37); BLOOD UREA NITROGEN 16 mg/dL (7-18); CALCIUM 8.2 mg/dL (8.5-10.1); CARBON DIOXIDE 17.3 mmol/L (21-32); CHLORIDE 114 mmol/L (98-107); COR CA(FOR HYPOALB) 9.7 mg/dL (8.5-10.1); CREATININE 0.79 mg/dL (0.55-1.02); SODIUM 141 mmol/L (136-145); TOTAL PROTEIN 5.4 g/dL (6.4-8.2); eGFR NON BLACK RACES > 60 (>60)
[2021-10-03] MEDS: K-DUR TAB 20 MEQ PO PRN (06:29)
[2021-10-03] MEDS: LOVENOX INJ 40 MG SYR SC SCH (09:13)
[2021-10-03] MEDS: VANCOMYCIN IV *PREMIX 750 mg/150 ML BAG 750 MG/150 ML PIGGYBACK IV SCH (09:13)
[2021-10-03] MEDS: PROTONIX INJ 40 MG VIAL IVP SCH (09:13)
[2021-10-03] MEDS: PERCOCET TAB 5/325 MG PO PRN ×2 (13:41→19:35)
[2021-10-03 20:24] LABS: CREATININE 0.83 mg/dL (0.55-1.02)
[2021-10-03 20:31] LABS: VANCOMYCIN,TROUGH 20.9 ug/mL (15-20)
[2021-10-03] MEDS: VANCOMYCIN IV *PREMIX 500 mg/100 ML BAG 500 MG/100 ML PIGGYBACK IV SCH (22:30)
[2021-10-04] MEDS: PERCOCET TAB 5/325 MG PO PRN ×4 (01:35→23:56)
[2021-10-04] MEDS: MORPHINE SULFATE INJ 2 MG INJ IVP PRN ×3 (03:55→20:34)
[2021-10-04 05:24] LABS: BASOPHILS % (AUTO) 0.7 % (0.2-1.0); EOSINOPHILS # (AUTO) 0.3 x10^3/uL (0.0-0.2); EOSINOPHILS % (AUTO) 4.3 % (0.9-2.9); HEMATOCRIT 27.1 % (36.0-47.0); HEMOGLOBIN 9.5 g/dL (12.0-16.0); LYMPHOCYTES # (AUTO) 0.9 X10^3/uL (1.3-2.9); MEAN CORPUSCULAR HEMOGLOBIN 31.8 pg (27.0-34.0); MEAN CORPUSCULAR HGB CONC 35.2 g/dL (33.0-35.0); MEAN CORPUSCULAR VOLUME 90.3 fL (80.0-100.0); MEAN PLATELET VOLUME 6.8 fL (7.4-11.0); MONOCYTES # (AUTO) 0.7 x10^3/uL (0.3-0.8); MONOCYTES % (AUTO) 11.2 % (0.0-13.0); NEUTROPHILS # (AUTO) 4.5 x10^3/uL (2.2-4.8); NEUTROPHILS % (AUTO) 69.8 % (42.0-75.0); RED CELL DISTRIBUTION WIDTH 16.1 % (11.6-16.5); WHITE BLOOD COUNT 6.4 X10^3/uL (3.6-10.0)
[2021-10-04 05:40] LABS: ALANINE AMINOTRANSFERASE 13 Units/L (12-78); ALBUMIN 2.3 g/dL (3.4-5.0); ALKALINE PHOSPHATASE 68 Units/L (46-116); ASPARTATE AMINO TRANSFERASE 15 Units/L (15-37); BLOOD UREA NITROGEN 13 mg/dL (7-18); CALCIUM 8.3 mg/dL (8.5-10.1); CARBON DIOXIDE 17.3 mmol/L (21-32); CHLORIDE 110 mmol/L (98-107); COR CA(FOR HYPOALB) 9.7 mg/dL (8.5-10.1); CREATININE 0.82 mg/dL (0.55-1.02); SODIUM 137 mmol/L (136-145); TOTAL PROTEIN 5.6 g/dL (6.4-8.2); eGFR NON BLACK RACES > 60 (>60)
[2021-10-04] MEDS: PULMICORT NEB TX 0.5 MG NEB SCH ×2 (08:15→21:03)
[2021-10-04] MEDS: DUONEB 0.5 MG/3 MG (3 mL) NEB SCH ×4 (08:53→21:03)
[2021-10-04] MEDS: LOVENOX INJ 40 MG SYR SC SCH (09:36)
[2021-10-04] MEDS: VANCOMYCIN IV *PREMIX 500 mg/100 ML BAG 500 MG/100 ML PIGGYBACK IV SCH ×2 (09:38→20:36)
[2021-10-04] MEDS: PROTONIX INJ 40 MG VIAL IVP SCH (09:38)
[2021-10-04] MEDS: NS 1,000 ML IV 1,000 ML IV SCH ×2 (14:06→20:33)
[2021-10-05] MEDS: MORPHINE SULFATE INJ 2 MG INJ IVP PRN ×4 (02:58→21:12)
[2021-10-05 05:44] LABS: BASOPHILS % (AUTO) 0.4 % (0.2-1.0); EOSINOPHILS # (AUTO) 0.1 x10^3/uL (0.0-0.2); EOSINOPHILS % (AUTO) 2.1 % (0.9-2.9); HEMATOCRIT 27.5 % (36.0-47.0); HEMOGLOBIN 9.7 g/dL (12.0-16.0); LYMPHOCYTES # (AUTO) 1.2 X10^3/uL (1.3-2.9); LYMPHOCYTES % (AUTO) 27.4 % (21.0-51.0); MEAN CORPUSCULAR HEMOGLOBIN 31.9 pg (27.0-34.0); MEAN CORPUSCULAR HGB CONC 35.1 g/dL (33.0-35.0); MEAN CORPUSCULAR VOLUME 90.8 fL (80.0-100.0); MEAN PLATELET VOLUME 6.5 fL (7.4-11.0); MONOCYTES # (AUTO) 0.7 x10^3/uL (0.3-0.8); MONOCYTES % (AUTO) 16.2 % (0.0-13.0); NEUTROPHILS # (AUTO) 2.4 x10^3/uL (2.2-4.8); NEUTROPHILS % (AUTO) 53.9 % (42.0-75.0); RED BLOOD COUNT 3.03 X10^6/uL (3.5-5.4); RED CELL DISTRIBUTION WIDTH 16.1 % (11.6-16.5); WHITE BLOOD COUNT 4.5 X10^3/uL (3.6-10.0)
[2021-10-05 05:48] LABS: ALANINE AMINOTRANSFERASE 25 Units/L (12-78); ALBUMIN 2.3 g/dL (3.4-5.0); ALKALINE PHOSPHATASE 67 Units/L (46-116); ASPARTATE AMINO TRANSFERASE 29 Units/L (15-37); BLOOD UREA NITROGEN 13 mg/dL (7-18); CALCIUM 8.1 mg/dL (8.5-10.1); CARBON DIOXIDE 17.5 mmol/L (21-32); CHLORIDE 109 mmol/L (98-107); COR CA(FOR HYPOALB) 9.5 mg/dL (8.5-10.1); CREATININE 0.84 mg/dL (0.55-1.02); SODIUM 138 mmol/L (136-145); TOTAL PROTEIN 5.7 g/dL (6.4-8.2); eGFR NON BLACK RACES > 60 (>60)
[2021-10-05] MEDS: K-DUR TAB 20 MEQ PO PRN (06:23)
[2021-10-05] MEDS: DUONEB 0.5 MG/3 MG (3 mL) NEB SCH ×3 (06:34→21:05)
[2021-10-05] MEDS: LOVENOX INJ 40 MG SYR SC SCH (08:16)
[2021-10-05] MEDS: VANCOMYCIN IV *PREMIX 500 mg/100 ML BAG 500 MG/100 ML PIGGYBACK IV SCH ×2 (08:19→21:14)
[2021-10-05] MEDS: MAGNESIUM SULFATE 1 GRAM/100 mL PREMIX 1 G/100 ML BAG IV PRN ×2 (08:19→13:24)
[2021-10-05] MEDS: PROTONIX INJ 40 MG VIAL IVP SCH (08:20)
[2021-10-05] MEDS: PERCOCET TAB 5/325 MG PO PRN ×3 (08:21→23:33)
[2021-10-05] MEDS: PULMICORT NEB TX 0.5 MG NEB SCH ×2 (09:34→21:05)
[2021-10-05] MEDS: NS 1,000 ML IV 1,000 ML IV SCH (13:23)
--- NOTE | 2021-10-05 13:33 | PCM.PROG ---
Progress Note - Subjective Subjective: Patient was admitted as per HPI. Patient continues to have acute back pain. Patient is currently pending MRI lumbar spine. No new concerns at present. - Past Medical Family Social History Past Med/Fam/Surg Hx: No changes since H&P Allergies: Allergies No Known Drug Allergies Allergy (Verified 04/25/21 12:34) - Review of Systems ROS: No change since H&P - Vital Signs and I&O's Vital Signs: Temperature 98.3 F Pulse Rate [Left Radial] 73 Pulse Rate 75 Respiratory Rate 18 Blood Pressure [Left Arm] 115/71 Blood Pressure [Right Arm] 101/55 Blood Pressure 91/46 O2 Sat by Pulse Oximetry 97 Intake and Output: Intake & Output 10/02/21 10/03/21 10/04/21 10/05/21 23:59 23:59 23:59 23:59 Intake Total 2992 / 2992 2962 / 2962 3383 / 3383 673 / 673 Balance 2992 / 2992 2962 / 2962 3383 / 3383 673 / 673 - Physical Exam Oriented: Normal Eyes: Normal Ear: Normal Nose: Normal Throat: Normal Respiratory: Normal Cardiovascular: Normal, Edema Auscultation: Bowel Sounds: Normal Palpation: Normal Tenderness: Normal Skin: Decreased Turgur Musculoskeletal: Back:Thoracic, Back:Lumbar Psychiatric: Normal Mood Description: Calm Affect: Normal Speech Pattern: Clear, Appropriate - Laboratory and Diagnostics Result Diagrams: 10/05/21 05:17 10/05/21 08:47 Labs: 09/30/21 19:40 Blood Blood Culture - Preliminary 09/30/21 19:26 Blood Blood Culture - Preliminary Laboratory WBC 4.5 X10^3/uL (3.6-10.0) 10/05/21 05:17 RBC 3.03 X10^6/uL (3.5-5.4) L 10/05/21 05:17 Hgb 9.7 g/dL (12.0-16.0) L 10/05/21 05:17 Hct 27.5 % (36.0-47.0) L 10/05/21 05:17 MCV 90.8 fL (80.0-100.0) 10/05/21 05:17 MCH 31.9 pg (27.0-34.0) 10/05/21 05:17 MCHC 35.1 g/dL (33.0-35.0) H 10/05/21 05:17 RDW 16.1 % (11.6-16.5) 10/05/21 05:17 Plt Count 322 X10^3/uL (150.0-450.0) 10/05/21 05:17 MPV 6.5 fL (7.4-11.0) L 10/05/21 05:17 Neut % (Auto) 53.9 % (42.0-75.0) 10/05/21 05:17 Lymph % (Auto) 27.4 % (21.0-51.0) 10/05/21 05:17 [place] % (Auto) 16.2 % (0.0-13.0) H 10/05/21 05:17 Eos % (Auto) 2.1 % (0.9-2.9) 10/05/21 05:17 Baso % (Auto) 0.4 % (0.2-1.0) 10/05/21 05:17 Neut # (Auto) 2.4 x10^3/uL (2.2-4.8) 10/05/21 05:17 Lymph # (Auto) 1.2 X10^3/uL (1.3-2.9) L 10/05/21 05:17 [place] # (Auto) 0.7 x10^3/uL (0.3-0.8) 10/05/21 05:17 Eos # (Auto) 0.1 x10^3/uL (0.0-0.2) 10/05/21 05:17 Baso # (Auto) 0.0 X10^3/uL (0.0-0.1) 10/05/21 05:17 Absolute Nucleated RBC 0.1 /100WBC 10/05/21 05:17 ESR 15 MM/HOUR (0-20) 09/30/21 19:20 Sodium 138 mmol/L (136-145) 10/05/21 05:17 Corrected Sodium TNP 10/05/21 05:17 Potassium 3.7 mmol/L (3.5-5.1) 10/05/21 08:47 Chloride 109 mmol/L (98-107) H 10/05/21 05:17 Carbon Dioxide 17.5 mmol/L (21-32) L 10/05/21 05:17 BUN 13 mg/dL (7-18) 10/05/21 05:17 Creatinine 0.84 mg/dL (0.55-1.02) 10/05/21 05:17 Est GFR (MDRD) Af Amer > 60 (>60) 10/05/21 05:17 Est GFR (MDRD) Non-Af > 60 (>60) 10/05/21 05:17 Glucose 91 mg/dL (65-99) 10/05/21 05:17 Calcium 8.1 mg/dL (8.5-10.1) L 10/05/21 05:17 Corrected Calcium 9.5 mg/dL (8.5-10.1) 10/05/21 05:17 Magnesium 1.9 mg/dL (1.7-2.9) 10/05/21 05:17 Iron 39 ug/dL (50-175) L 09/30/21 19:20 Transferrin 201 mg/dL (202-364) L 09/30/21 19:20 Ferritin 110 ng/mL (8-252) 09/30/21 19:20 Total Bilirubin 0.20 mg/dL (0.2-1.0) 10/05/21 05:17 AST 29 Units/L (15-37) 10/05/21 05:17 ALT 25 Units/L (12-78) 10/05/21 05:17 Alkaline Phosphatase 67 Units/L (46-116) 10/05/21 05:17 C-Reactive Protein 66.10 mg/L (0-3.0) H 09/30/21 19:20 Total Protein 5.7 g/dL (6.4-8.2) L 10/05/21 05:17 Albumin 2.3 g/dL (3.4-5.0) L 10/05/21 05:17 Globulin 3.4 g/dL (2.5-4.5) 10/05/21 05:17 Albumin/Globulin Ratio 0.7 Ratio (1.1-2.1) L 10/05/21 05:17 Vitamin B12 258 pg/mL (193-986) 09/30/21 19:20 Folate 7.8 ng/mL (>8.6) L 09/30/21 19:20 Specimen Type Clean catch urine 10/02/21 14:55 Urine Color Straw (YELLOW) 10/02/21 14:55 Urine Appearance Clear (CLEAR) 10/02/21 14:55 Urine pH 6.5 (5.0 - 8.0) 10/02/21 14:55 Ur Specific [place] 1.010 (1.000-1.030) 10/02/21 14:55 Urine Protein 1+ (NEGATIVE) 10/02/21 14:55 Urine Glucose (UA) Negative (NEGATIVE) 10/02/21 14:55 Urine Ketones Negative (NEGATIVE) 10/02/21 14:55 Urine Blood 3+ (NEGATIVE) 10/02/21 14:55 Urine Nitrite Negative (NEGATIVE) 10/02/21 14:55 Urine Bilirubin Negative (NEGATIVE) 10/02/21 14:55 Urine Urobilinogen Normal (NORMAL) 10/02/21 14:55 Ur Leukocyte Esterase 1+ (NEGATIVE) 10/02/21 14:55 Urine RBC 3-5 /HPF (0-3) A 10/02/21 14:55 Urine WBC 3-5 /HPF (0-5) 10/02/21 14:55 Ur Squamous Epith Cells Rare /HPF (NEGATIVE) 10/02/21 14:55 Ur Transition Epith Cell Cancelled 10/02/21 09:50 Ur Renal Epithelial Cell Cancelled 10/02/21 09:50 Calcium Oxalate Crystal Cancelled 10/02/21 09:50 Cystine Crystals Cancelled 10/02/21 09:50 Uric Acid Crystals Cancelled 10/02/21 09:50 Triple Phos Crystals Cancelled 10/02/21 09:50 Tyrosine Crystals Cancelled 10/02/21 09:50 Other Crystals Cancelled 10/02/21 09:50 Amorphous Sediment Trace /HPF (NEGATIVE) 10/02/21 14:55 Urine Bacteria Trace /HPF (NEGATIVE) 10/02/21 14:55 Hyaline Casts Cancelled 10/02/21 09:50 Granular Casts Cancelled 10/02/21 09:50 Fine Granular Casts Cancelled 10/02/21 09:50 Coarse Granular Casts Cancelled 10/02/21 09:50 RBC Casts Cancelled 10/02/21 09:50 Other Casts Cancelled 10/02/21 09:50 Urine Mucus Cancelled 10/02/21 09:50 Urine Trichomonas Cancelled 10/02/21 09:50 Urine Yeast Rare /HPF (NEGATIVE) 10/02/21 14:55 Urine Sperm Cancelled 10/02/21 09:50 Ur Culture Indicated? No/not indicated 10/02/21 14:55 Vancomycin Trough 20.9 ug/mL (15-20) H* 10/03/21 19:38 SARS-CoV-2 (PCR) Negative (NEGATIVE) 09/30/21 19:08 - Plan (1) Acute low back pain with sciatica Status: Acute Qualifiers: Back pain laterality: unspecified Sciatica laterality: sciatica of right side Qualified Code(s): M54.41 - Lumbago with sciatica, right side (2) Discitis of lumbar region Status: Acute Plan: IV ATBX. BLOOD CULTURES ON ADMISSION. CXR, PAIN CONTROL. CONFIRM HOME MEDICATION. CRP, SED RATE (3) Acute low back pain with right-sided sciatica Status: Acute
--- NOTE | 2021-10-05 17:31 | MRI ---
MR lumbar spine without contrastIndication: Severe back pain and osteomyelitisTECHNIQUEMultiplanar multisequence imaging through the lumbar spine without contrast.COMPARISONJune [id number] is extensive edema at L3-L4, epicenter is the disc space at L3-L4 with fluid at the intervertebral disc space. This approaches the superior endplate of L3 and abuts the inferior endplate of L4 with minimal increased signal seen at the intervertebral disc space at L4 possible annular tear on sagittal image 8 of series 601. Spread of infection into the adjacent disc space at L4-L5 could be developing. There is edema in the pedicles, particularly at L4, with effusions at the L3-L4 and L4-L5 facets noted. Spread of the infection of the posterior elements is possible. At L3-L4, the retropulsed disc material or infectious material causes moderate to severe stenosis on axial image 25 and severe right lateral recess stenosis on axial image 24 and sagittal image 7. Impingement of descending right L4 nerve root likely. Nine epidural abscess is not excluded.T11-T12, T12-L1 and L1-L2 levels show no stenosis.L2-L3: Disc bulge and facet arthropathy without high-grade stenosisL3-L4: See above discussion, as regards to the right lateral recess and spinal canal. The left neural foramina is moderate to severely narrowed on the right neural foramina is severely narrowed.L4-L5: Circumferential disc bulge and mild facet arthropathy causes mild spinal canal narrowing with severe left and moderate right neural foramina narrowing.L5-S1: Facet arthropathy with mild encroachment on the neural foramina bilaterally.Visualized abdominopelvic soft tissues demonstrate renal cysts, without other acute abnormality identified.When compared to the prior CT, there appears to been worsening interval collapse of the endplates of L3 and [id number]. Extensive edema at L3-L4 with fluid at the intervertebral disc space and surrounding soft tissue inflammation, rapidly worsening from prior imaging and slightly worsened in the past 4 days. This is highly concerning for spondylo discitis. Neuro surgical consultation recommended. Direct sampling will be needed.2. Disc bulge and possible epidural extension of infection contributes to spinal canal stenosis at L3-L4, particularly with right lateral recess stenosis.3. Neural foramina stenosis is notably present at L3-L4 and on the left at L4-L5. Other levels of narrowing as above.4. Edema is extending into the posterior.5. To confirm spinal the discitis, in addition to direct sampling, MR imaging with contrast can further evaluate for epidural abscess or peripherally enhancing collections. Spread of the infection to the L4-L5 intervertebral disc is possible.6. In addition to infection, insufficiency fractures and abnormal motion could appear similar, but infection is presumed to must be excluded.Electronically signed by: LISANDRO RODRIGUEZ (Oct 05, 2021 17:29:15)
[2021-10-05 20:34] LABS: CREATININE 0.75 mg/dL (0.55-1.02); VANCOMYCIN,TROUGH 17.2 ug/mL (15-20)
[2021-10-06] MEDS: NS 1,000 ML IV 1,000 ML IV SCH (01:05)
[2021-10-06] MEDS: MORPHINE SULFATE INJ 2 MG INJ IVP PRN ×2 (04:06→11:11)
[2021-10-06 04:54] LABS: BASOPHILS % (AUTO) 0.5 % (0.2-1.0); EOSINOPHILS # (AUTO) 0.1 x10^3/uL (0.0-0.2); EOSINOPHILS % (AUTO) 1.6 % (0.9-2.9); HEMATOCRIT 25.8 % (36.0-47.0); HEMOGLOBIN 8.9 g/dL (12.0-16.0); LYMPHOCYTES # (AUTO) 1.3 X10^3/uL (1.3-2.9); LYMPHOCYTES % (AUTO) 31.7 % (21.0-51.0); MEAN CORPUSCULAR HEMOGLOBIN 31.1 pg (27.0-34.0); MEAN CORPUSCULAR HGB CONC 34.7 g/dL (33.0-35.0); MEAN CORPUSCULAR VOLUME 89.6 fL (80.0-100.0); MEAN PLATELET VOLUME 6.7 fL (7.4-11.0); MONOCYTES # (AUTO) 0.6 x10^3/uL (0.3-0.8); MONOCYTES % (AUTO) 13.7 % (0.0-13.0); NEUTROPHILS # (AUTO) 2.1 x10^3/uL (2.2-4.8); NEUTROPHILS % (AUTO) 52.5 % (42.0-75.0); RED BLOOD COUNT 2.88 X10^6/uL (3.5-5.4); RED CELL DISTRIBUTION WIDTH 15.8 % (11.6-16.5)
[2021-10-06 05:10] LABS: ALANINE AMINOTRANSFERASE 20 Units/L (12-78); ALBUMIN 2.1 g/dL (3.4-5.0); ALKALINE PHOSPHATASE 61 Units/L (46-116); ASPARTATE AMINO TRANSFERASE 23 Units/L (15-37); BLOOD UREA NITROGEN 11 mg/dL (7-18); CALCIUM 7.8 mg/dL (8.5-10.1); CHLORIDE 110 mmol/L (98-107); COR CA(FOR HYPOALB) 9.3 mg/dL (8.5-10.1); CREATININE 0.71 mg/dL (0.55-1.02); MAGNESIUM 2.1 mg/dL (1.7-2.9); SODIUM 136 mmol/L (136-145); TOTAL PROTEIN 5.3 g/dL (6.4-8.2); eGFR NON BLACK RACES > 60 (>60)
[2021-10-06] MEDS: K-DUR TAB 20 MEQ PO PRN (05:49)
[2021-10-06] MEDS: DUONEB 0.5 MG/3 MG (3 mL) NEB SCH (06:18)
[2021-10-06] MEDS: PROTONIX INJ 40 MG VIAL IVP SCH (08:39)
[2021-10-06] MEDS: LOVENOX INJ 40 MG SYR SC SCH (08:39)
[2021-10-06] MEDS: VANCOMYCIN IV *PREMIX 500 mg/100 ML BAG 500 MG/100 ML PIGGYBACK IV SCH (08:40)
[2021-10-06] MEDS ORDERED: ROCEPHIN VIAL 1 GRAM 1 G in NS 100 ML IV 100 ML IV SCH (09:00)
[2021-10-06] MEDS ORDERED: ROCEPHIN 1 GRAM IV PREMIX 1 G/50 ML IV.SOLN. IV SCH (09:00)
[2021-10-06] MEDS: PERCOCET TAB 5/325 MG PO PRN (09:01)
[2021-10-06] MEDS: PULMICORT NEB TX 0.5 MG NEB SCH (09:30)
[2021-10-06 12:26] VITALS: BP 129/58
--- NOTE | 2021-10-07 10:40 | PCM.DCPLAN ---
Discharge Plan - Discharge Plan Hospital Course: Admit date 09/30/21 Discharge date 10/06/21 DOS 10/06/21 Admit diagnosis (1) Discitis of lumbar region (2) History of colon cancer (3) Anemia Discharge diagnosis (1) Anemia (2) Discitis of lumbar region (3) Acute low back pain with right-sided sciatica (4) History of colon cancer Hospital Course PT IS 60 YO WF DIRECT ADMIT FROM DR KUMAR OFFICE WITH OPEN MRI REPORTS REVEALING DISCITIS/OSTEOMYELITIS. PT HAS HAD INTRACTABLE BACK PAIN SINCE A FALL A FEW WEEKS AGO. PT REPORTS INCREASED LOWER LEG WEAKNESS. PT HAS PMH OF COLON CA IN 1993 AND REOCCURRENCE IN 1996. PT HAS COPD AND GERD. PT ADMITTED FOR TREATMENT AND EVALUATION OF ACUTE ILLNESS. OBTAINED MRI REPEAT MRI DURING HOSPITALIZATION WHICH REVEALED EXTENSIVE EDEMA AND INFLAMMATION WORSENING FROM OPEN MRI 1 WEEK PRIOR OUTPATIENT; SEE REPORTS/MRIS. PATIENT WAS TREATED WITH IV VANCOMYCIN AND ROCEPHIN. BLOOD CULTURES WERE NEGATIVE. PATIENT CONTINUED TO HAVE PAIN AND REQUIRE PAIN MEDICATIONS. CBC AND CHEMISTRY WERE UNREMARKABLE. PATIENT WAS TRANSFERRED TO [facility] FOR FURTHER NEURO SURGEON EVAL. Discharge time spent > 60 mins on transfer/discharge Disposition: HOME, SELF-CARE Condition: Stable Health Concerns: Post Hospitalization: new medications and changes needed to prevent readmission or further decline. Pt educated and given instructions on all concerns. Plan of Treatment: Continue with present treatment and follow up plan. Pt is to keep follow up appointment as instructed and take medications as ordered. Prescriptions: Continued ibuprofen 800 mg Tablet 800 mg PO TID PRN - Follow ups/Referrals Follow ups/Referrals: TIMA JACOBO [Primary Care Provider] - 1 WEEK - Instructions Forms: Excuse From Work or School, Precautions for COVID19, [facility], Patient Portal, Social Distancing Print Language: [id number]
== END 2021-10-06 11:50 | disposition home or self-care (01) | DRG 552 ==
LOC: MED/SURG 18:18
PROVIDERS: ADMIT Internal Medicine; ATTEND Internal Medicine
DX: Z20.822 Contact with and (suspected) exposure to COVID-19; M46.46 Discitis, unspecified, lumbar region; R53.1 Weakness; M46.26 Osteomyelitis of vertebra, lumbar region; J44.9 Chronic obstructive pulmonary disease, unspecified; Z85.038 Personal history of other malignant neoplasm of large intestine; Z91.81 History of falling; R79.82 Elevated C-reactive protein (CRP)